=== PATIENT | male | born 1950 | race Hispanic/Latino ===

== ENCOUNTER → 2017-05-17 | Outpatient (CLI) | payer MEDICARE, OTHER ==
[~2017-05-17] MED LIST: ALLOPURINOL300 MG PO; AMLODIPINE BESY10 MG PO; AZITHROMYCIN250 MG PO; BENZONATATE100 MG PO; DITROPAN XL5 MG PO; FLAGYL250 MG PO; HYDROCHLOROTHIA25 MG PO; LEVAQUIN500 MG PO; LISINOPRIL PO; LOSARTAN POTAS100 MG PO; LOSARTAN-HCTZ1 EAC1 PO; OXYBUTYNIN CHLOR5 MG PO; POTASSIUM CHLO10 ME1 PO; TYLENOL # 31 EA PO; [UNRECOGNIZED DRUG - OTHER] PO
--- NOTE | 2017-05-17 13:09 | Diagnostic Imaging Report ---
PROCEDURE:CHEST 2 VIEWS TECHNIQUE:PA and lateral chest INDICATION:Cough and congestion COMPARISON:None. FINDINGS: The lungs are clear and symmetrically inflated. Normal bronchial wall thickness. No pleural effusions. Normal heart size, mediastinal contour, and pulmonary vasculature. Normal skeleton. CONCLUSION: Normal chest. Specifically, no evidence of pneumonia. Dictated by: Rhett Lopez M.D. on 05/17/2017 at 13:18 Electronically approved by: Rhett Lopez M.D. on 05/17/2017 at 13:18
== END ==
LOC: RAD 12:11
DX: R05 Cough (principal); R09.89 Other specified symptoms and signs involving the circulatory and respiratory systems
CPT/HCPCS: 71046

== ENCOUNTER → 2017-05-25 | Outpatient (CLI) | payer MEDICARE, OTHER ==
--- NOTE | 2017-05-25 20:31 | Diagnostic Imaging Report ---
PROCEDURE:X-RAY ABDOMEN - KUB COMPARISON:[facility], CT, CT ABDOMEN/PELVIS W, 11/09/2016, 21:52. INDICATIONS:KIDNEY STONE CHECK UP FINDINGS: There is a non-obstructed bowel-gas pattern. Right kidney: Multiple (at least 4) radiopaque densities project over the right renal shadow, ranging in size from 2-6 mm. The largest density is located in the inferior pole. Left kidney: 4 mm radiopaque density projects over the left renal shadow in the mid aspect. A 3 mm radiopaque density projects in the left inferior pole. No radiopaque densities project over the expected course of ureters or bladder. No acute bony abnormalities. CONCLUSION: Bilateral radiopaque densities project over the renal shadows, consistent with nonobstructing calculi Jamaal Neumann M.D. Dictated by: Jamaal Neumann M.D. on 05/25/2017 at 20:31 Electronically approved by: Jamaal Neumann M.D. on 05/25/2017 at 20:31
== END ==
LOC: RAD 15:14
PROVIDERS: ATTEND Urology
DX: N20.0 Calculus of kidney (principal)
CPT/HCPCS: 74018

== ENCOUNTER → 2017-08-13 | Day surgery (SDC) | payer MEDICARE, OTHER ==
[2017-08-11 10:00] LABS: BASOPHILS # (AUTO) 0.1 (0.0-0.1); BASOPHILS % 0.8 % (0.0-1.0); EOSINOPHILS # (AUTO) 0.3 (0.0-0.4); EOSINOPHILS % 3.2 % (0.0-6.0); HEMATOCRIT 48.6 % (38.2-49.6); HEMOGLOBIN 16.8 g/dL (14.0-18.0); LYMPHOCYTES # (AUTO) 1.9 (1.0-3.2); LYMPHOCYTES % 24.8 % (18.0-39.1); MEAN CORPUSCULAR HEMOGLOBIN 30.5 pg (28-32); MEAN CORPUSCULAR HGB CONC 34.6 g/dL (31-35); MEAN CORPUSCULAR VOLUME 88.2 fL (81-99); MONOCYTES # (AUTO) 0.7 (0.2-0.8); MONOCYTES % 8.6 % (4.4-11.3); NEUTROPHILS # (AUTO) 4.8 (2.1-6.9); NEUTROPHILS % 62.3 % (38.7-80.0); PLATELET COUNT 224 x10e3/uL (140-360); RED BLOOD COUNT 5.51 x10e6/uL (4.3-5.7); RED CELL DISTRIBUTION WIDTH 14.1 % (11.7-14.4)
[~2017-08-13] MED LIST changes: +BELLADONNA/OPIUM 60 MG SUPP PR ONE; +CEFTRIAXONE SOD 1 GM VIAL ONE; +DESFLURANE 240 ML BTL INH ONE; +DEXAMETHASONE SOD PHOS INJ 4 MG/ML VIAL ONE; +FENTANYL CITRATE/PF 100MCG/2 ML INJ ONE; +IOPAMIDOL 610MG/1ML 300 MG/ML VIAL IV ONE; +LIDOCAINE HCL 2% LOCAL INJ 5 ML SDV VIAL INJ ONE; +MIDAZOLAM HCL 2 MG/2 ML VIAL ONE; +ONDANSETRON HCL INJ 2 MG/ML VIAL ONE; +PROPOFOL IV EMULSION 10 MG/ML 20 ML VIAL ONE
--- OUTSIDE RECORDS SUMMARY | 2017-08-13 06:06 | XMS REPORT ---
Author Author [facility] Address Unknown Phone Unavailable Care Team Providers Care Plumbing Assembler Installer Name Role Phone SRIRAM CHAN Unavailable Unavailable JOHNBRUCE Unavailable Unavailable Problems This patient has no known problems. Allergies, Adverse Reactions, Alerts This patient has no known allergies or adverse reactions. Medications This patient has no known medications. Results Test Description Test Time Test Comments Text Results Atomic Results Result Comments ABDOMEN-1VIEW (KUB) [place] [address] Patient Name: GRETCHEN PORTER MR #: [id number] : 1950 Age/Sex: 66/M Req #: [id number] Adm Physician: Ordered by: SRIRAM CHAN MD Report #: [id number] Location: [facility] Room/Bed: Procedure: [id number] DX/ABDOMEN-1VIEW (KUB) Exam Date: 05/25/17 Exam Time: 1540 REPORT STATUS: Signed PROCEDURE: X-RAY ABDOMEN - KUB COMPARISON: [facility], CT, CT ABDOMEN/ PELVIS W, 11/09/2016, 21:52. INDICATIONS: KIDNEY STONE CHECK UP FINDINGS: There is a non-obstructed bowel-gas pattern. Right kidney: Multiple (at least 4) radiopaque densities project over the right renal shadow, ranging in size from 2-6 mm. The largest density is located in the inferior pole. Left kidney: 4 mm radiopaque density projects over the left renal shadow in the mid aspect. A 3 mm radiopaque density projects in the left inferior pole. No radiopaque densities project over the expected course of ureters or bladder. No acute bony abnormalities. CONCLUSION: Bilateral radiopaque densities project over the renal shadows, consistent with nonobstructing calculi Debo Neumann M.D. Dictated by: Debo Neumann M.D. on 05/25/2017 at 20:31 Electronically approved by: Debo Neumann M.D. on 05/25/2017 at 20:31 Dictated By: DEBO NEUMANN MD 30 Transcribed By: DONTAE on 05/25/172030 COPY TO: SRIRAM CHAN MD CHEST 2 VIEWS [place] [address] Patient Name: GRETCHEN PORTER MR #: [id number] : 1950 Age/Sex: 66/M Req #: [id number] Adm Physician: Ordered by: BRUCE JOHN MD Report #: [id number] Location: [facility] Room/Bed: Procedure: [id number] DX/CHEST 2 VIEWS Exam Date: 05/17/17 Exam Time: 1230 REPORT STATUS: Signed PROCEDURE: CHEST 2 VIEWS TECHNIQUE: PA and lateral chest INDICATION: Cough and congestion COMPARISON: None. FINDINGS: The lungs are clear and symmetrically inflated. Normal bronchial wall thickness. No pleural effusions. Normal heart size, mediastinal contour, and pulmonary vasculature. Normal skeleton. CONCLUSION: Normal chest. Specifically, no evidence of pneumonia. Dictated by: Lucero Lopez M.D. on 05/17/2017 at 13:18 Electronically approved by: Lucero Lopez M.D. on 05/17/2017 at 13: 18 Dictated By: LUCERO LOPEZ MD [id number] Transcribed By: DONTAE on 05/17/17 1318 COPY TO: BRUCE JOHN MD
--- NOTE | 2017-08-13 07:45 | Diagnostic Imaging Report ---
PROCEDURE:X-RAY ABDOMEN - KUB COMPARISON:CT abdomen and pelvis 11/09/2016. INDICATIONS:PREOP - CALCULI OF KIDNEY FINDINGS: There is a non-obstructed bowel-gas pattern. Moderate amount of retained feces is present in the colon and rectum. Round density projects in the right upper quadrant, consistent with the hepatic cyst present on the previous examination. Right renal cyst. Multiple calculi project over the kidneys bilaterally. The largest in the right kidney measures 5.1 mm and projects over the inferior pole. The largest in the left kidney measures 6.7 mm and projects over the inferior pole. There are no calcifications projected over the expected course of the ureters or bladder. There are no acute osseous abnormalities. The lung bases are clear. CONCLUSION: Bilateral nephrolithiasis. Hepatic and renal cysts. Dictated by: Sunday Singleton M.D. on 08/13/2017 at 7:46 Electronically approved by: Sunday Singleton M.D. on 08/13/2017 at 7:46
--- NOTE | 2017-09-29 01:43 | Operative Report ---
DATE OF PROCEDURE: August 13, 2017 PREOPERATIVE DIAGNOSES: 1. Bilateral nephrolithiasis. 2. Chronic renal insufficiency. POSTOPERATIVE DIAGNOSES: 1. Bilateral nephrolithiasis. 2. Chronic renal insufficiency. OPERATIONS PERFORMED: 1. Staged left-sided extracorporeal shock wave lithotripsy (separate procedure performed for the 7-mm stone located in the left kidney). 2. Cystourethroscopy with bilateral ureteral catheterization and retrograde ureteropyelography (separate procedure performed to evaluate the obstruction in light of the renal insufficiency. 3. Interpretation of retrograde ureteropyelography. ANESTHESIA: General. COMPLICATIONS: None. CLINICAL SUMMARY: Parish Cabrera is a 66-year-old man with recurrent urolithiasis. He is brought for the above procedures. He is aware of the risks of bleeding, infection, injury to adjacent structures, need for additional procedures, and elected to proceed. OPERATIVE PROCEDURE IN DETAIL: Informed consent was verified. Parish Cabrera was properly identified, taken to the operating room, and placed on the lithotripsy table in supine position. Anesthesia was uneventfully begun. The patient's left nephrolithiasis was localized with biplanar fluoroscopy. Total of 3000 shocks were delivered with fragmentation noted. The patient was carefully and gently repositioned in dorsal lithotomy position with all pressure points well padded. His genitalia were prepared and draped in usual sterile fashion. A 22.5-Albanian cystoscope sheath with the visual obturator in place was atraumatically inserted into patient's urethra. It was guided down the unremarkable urethra, through the normal sphincteric region, through the prostate bed, which was significant for bilobar prostatic hypertrophy with an elevated median bar and visual obstruction. Panendoscopy of the urinary bladder revealed grade 1 trabeculations, but no tumors, no stones, and no diverticula. Normally positioned and configured ureteral orifices were identified. An 8-Albanian catheter was utilized to cannulate each ureter, and retrograde ureteral pyelograms were performed. Interpretation of retrograde ureteropyelography: Contrast was instilled in retrograde fashion bilaterally. There were no tumors, no new stones, and no diverticula. Filling defects were noted on the left side where we performed lithotripsy. This was an expected finding. The right nephrolithiasis was also noted. The patient's bladder was then drained and the cystoscope was withdrawn. A belladonna and opium suppository was placed, revealing a 40 g prostate that is smooth, non-fluctuant, and without any nodules. The patient was then uneventfully reversed from anesthesia and taken to recovery room in stable condition. There were no complications to the procedure. He tolerated the procedure well. Explicit post instructions were given, and we will return the patient to the operating room for right ESWL. Job#: [id number]
== END | disposition home or self-care (01) ==
LOC: OR 06:04
PROVIDERS: ATTEND Urology
DX: N20.0 Calculus of kidney (principal); N32.89 Other specified disorders of bladder; I12.9 Hypertensive chronic kidney disease with stage 1 through stage 4 chronic kidney disease, or unspecified chronic kidney disease; N18.9 Chronic kidney disease, unspecified; G47.33 Obstructive sleep apnea (adult) (pediatric); Z01.810 Encounter for preprocedural cardiovascular examination; Z01.812 Encounter for preprocedural laboratory examination; Z88.5 Allergy status to narcotic agent
CPT/HCPCS: 36415; 50590; 74018; 85025; 93005; C1758; J0696; J1100; J2001; J2250; J2405; Q9967

== ENCOUNTER → 2017-09-21 | Outpatient (CLI) | payer MEDICARE, OTHER ==
[~2017-09-21] MED LIST changes: -BELLADONNA/OPIUM 60 MG SUPP PR ONE; -CEFTRIAXONE SOD 1 GM VIAL ONE; -DESFLURANE 240 ML BTL INH ONE; -DEXAMETHASONE SOD PHOS INJ 4 MG/ML VIAL ONE; -FENTANYL CITRATE/PF 100MCG/2 ML INJ ONE; -IOPAMIDOL 610MG/1ML 300 MG/ML VIAL IV ONE; -LIDOCAINE HCL 2% LOCAL INJ 5 ML SDV VIAL INJ ONE; -MIDAZOLAM HCL 2 MG/2 ML VIAL ONE; -ONDANSETRON HCL INJ 2 MG/ML VIAL ONE; -PROPOFOL IV EMULSION 10 MG/ML 20 ML VIAL ONE
--- NOTE | 2017-09-21 18:25 | Diagnostic Imaging Report ---
PROCEDURE:X-RAY ABDOMEN - KUB COMPARISON:Patients [facility], DX, ABDOMEN-1VIEW (KUB), 08/13/2017, 7:05. INDICATIONS:KIDNEY STONES FINDINGS: Nonobstructive bowel gas pattern. Multiple radiopaque densities are again noted projecting over bilateral renal shadows, with the largest on the right measuring approximately 5 mm projecting in the inferior pole, and the largest on the left measuring approximately 4 mm, projecting in the mid to inferior aspect. No radiopaque densities project over the expected course of the ureters or bladder. No acute bony abnormalities. CONCLUSION: Bilateral nonobstructing calculi. No radiopaque densities project over the expected course of the ureters or bladder. Jamaal Neumann M.D. Dictated by: Jamaal Neumann M.D. on 09/21/2017 at 18:28 Electronically approved by: Jamaal Neumann M.D. on 09/21/2017 at 18:28
== END ==
LOC: RAD 14:28
PROVIDERS: ATTEND Urology
DX: N20.0 Calculus of kidney (principal)
CPT/HCPCS: 74018

== ENCOUNTER 2017-09-24 09:56 | Emergency (ER) | payer MEDICARE, OTHER ==
[~2017-09-24] VITALS: Ht 177.8 cm; Wt 98.0 kg
[2017-09-24] MEDS ORDERED: ONDANSETRON HCL INJ 2 MG/ML VIAL IV STA (10:28)
[2017-09-24] MEDS ORDERED: SODIUM CHLORIDE 0.9% 1000ML 1,000 ML IV STA (10:28)
[2017-09-24] MEDS ORDERED: KETOROLAC TROMETHAMINE 30 MG/ML VIAL IV STA (10:28)
[2017-09-24 10:38] LABS: BASOPHILS # (AUTO) 0.1 (0.0-0.1); BASOPHILS % 0.5 % (0.0-1.0); EOSINOPHILS # (AUTO) 0.2 (0.0-0.4); EOSINOPHILS % 1.6 % (0.0-6.0); HEMATOCRIT 48.2 % (38.2-49.6); HEMOGLOBIN 16.7 g/dL (14.0-18.0); LYMPHOCYTES # (AUTO) 1.6 (1.0-3.2); LYMPHOCYTES % 16.3 % (18.0-39.1); MEAN CORPUSCULAR HEMOGLOBIN 30.3 pg (28-32); MEAN CORPUSCULAR HGB CONC 34.6 g/dL (31-35); MEAN CORPUSCULAR VOLUME 87.3 fL (81-99); MONOCYTES # (AUTO) 0.8 (0.2-0.8); MONOCYTES % 8.2 % (4.4-11.3); NEUTROPHILS # (AUTO) 7.3 (2.1-6.9); PLATELET COUNT 177 x10e3/uL (140-360); RED BLOOD COUNT 5.52 x10e6/uL (4.3-5.7); RED CELL DISTRIBUTION WIDTH 13.9 % (11.7-14.4)
[2017-09-24 10:47] LABS: INR 1.06
[2017-09-24 10:48] LABS: PARTIAL THROMBOPLASTIN TIME 30.9 seconds (23.8-35.5)
[2017-09-24 10:55] LABS: ALBUMIN/GLOBULIN RATIO 1.3 (0.8-2.0); ANION GAP 12.2 mmol/L (8-16); CALCIUM 9.1 mg/dL (8.4-10.2); CREATININE, SERUM 1.38 mg/dL (0.72-1.25); POTASSIUM 3.2 mmol/L (3.5-5.1)
[2017-09-24 11:02] LABS: BILIRUBIN,URINE NEGATIVE (NEGATIVE); CLARITY,URINE CLEAR (CLEAR); COLOR,URINE YELLOW (YELLOW); CREATINE KINASE MB 0.7 ng/mL (0-5.0); KETONES,URINE NEGATIVE (NEGATIVE); LEUKOCYTE ESTERASE ,URINE NEGATIVE (NEGATIVE); NITRITE,URINE NEGATIVE (NEGATIVE); PROTEIN,URINE DIPSTICK NEGATIVE (NEGATIVE); URINE UROBILINOGEN 0.2 mg/dL (0.2 - 1)
[2017-09-24 11:19] LABS: EPITHELIAL CELLS,URINE RARE /LPF; MUCUS,URINE RARE (RARE)
--- NOTE | 2017-09-24 13:42 | Diagnostic Imaging Report ---
PROCEDURE:ABDOMINAL ULTRASOUND COMPARISON:[facility], CT, CT ABDOMEN/PELVIS W, 11/09/2016, 21:52. INDICATIONS: RIGHT ABDOMEN PAIN TECHNIQUE: Transverse and longitudinal images of the upper abdomen were obtained. FINDINGS: Liver: Size: 17.0 cm in the right midclavicular line, mildly enlarged. Appearance: Normal echogenicity, smooth contour Mass: Large anechoic lesion in the right lobe measures 14.6 x 13.5 x 13.2 cm. Anechoic lesion in the left lobe measures 1.7 x 1.4 x 1.7 cm. Spleen: Size: 10.7 cm in length, normal Echogenicity: Normal Mass: No focal masses Gallbladder: Stones/Sludge: None Appearance: No wall thickening, pericholecystic fluid or hydrops. Sonographic Melchor's Sign: Negative Bile Ducts: Intrahepatic Ducts: No dilatation Extrahepatic Ducts: Common bile duct measures 0.3 cm, no dilatation Pancreas: Visualized portions of the neck and proximal body are normal. Right Kidney: Size: 9.2 cm Echogenicity: Normal Collecting System: No hydronephrosis Stone: 2 small echogenic foci, the largest measuring 0.4 cm. Cyst/Mass: Anechoic lesion in the upper pole measures 4.4 x 2.0 x 2.0 cm. Anechoic lesion in the interpolar region measures 2.2 x 2.4 x 2.47 cm. Anechoic lesion in the lower pole measures 5.3 x 5.1 x 5.2 cm. Left Kidney: Size: 9.1 cm Echogenicity: Normal Collecting System: No hydronephrosis Stone: None Cyst/Mass: Anechoic lesion in the upper pole measures 5.1 x 5.1 x 5.0 cm. Vessels: Aorta: Visualized portions are normal Inferior Vena Cava: Visualized portions and normal Main Portal Vein: 1.3 cm, normal size with hepatopetal flow. Free Fluid: No ascites or pleural effusions IMPRESSION: 1. Very large, 14.6 cm simple cystic lesion in the right hepatic lobe. 2. Nonobstructing right renal calculi. 3. Bilateral simple renal cysts. Jack Faith M.D. Dictated by: Jack Faith M.D. on 09/24/2017 at 13:46 Electronically approved by: Jack Faith M.D. on 09/24/2017 at 13:46
[2017-09-24] MEDS ORDERED: DIATRIZOATE MEGL/DIATRIZOA SOD 30 ML BTL PO ONE (14:28)
--- NOTE | 2017-09-24 16:06 | Diagnostic Imaging Report ---
EXAM: CT Abdomen and Pelvis WITHOUT contrast INDICATION: Right-sided abdominal pain. Kidney stones. COMPARISON: 11/09/2016. TECHNIQUE: Abdomen and pelvis were scanned utilizing a multidetector helical scanner from the lung base to the pubic symphysis without administration of IV contrast. Absence of intravenous contrast decreases sensitivity for detection of focal lesions and vascular pathology. Coronal and sagittal reformations were obtained. Routine protocol was performed. IV CONTRAST: None. ORAL CONTRAST: Gastrografin and water mixture. RADIATION DOSE: Total DLP: 898.73 mGy*cm Estimated effective dose: (DLP x 0.015 x size factor) mSv COMPLICATIONS: None FINDINGS: LINES and TUBES: None. LOWER THORAX: Bibasilar dependent atelectasis. Calcification of the LAD and PDA. HEPATOBILIARY: Comparison is-sized hepatic cysts again observed, the largest in the right lobe measuring 15.6 cm in AP dimension, previously 13.6 cm, both measurements on image 34 series 2. No biliary ductal dilation. GALLBLADDER: No radio-opaque stones or sludge. No wall thickening. SPLEEN: No splenomegaly. PANCREAS: No focal masses or ductal dilatation. ADRENALS: No adrenal nodules KIDNEYS/URETERS: No hydronephrosis. Bilateral simple appearing renal cysts again observed, the largest exophytic of the anterior lower pole of the right kidney measuring 6.5 cm, previously 6.4 cm. Bilateral punctate renal calculi are again observed. No calculi are present within the ureter bilaterally. GI TRACT: No abnormal distention, wall thickening, or evidence of bowel obstruction. Appendix is nonvisualized, however, no evidence of appendicitis in the right lower quadrant. Scattered sigmoid diverticula without CT evidence of acute diverticulitis. PELVIC ORGANS/BLADDER: Unremarkable. LYMPH NODES: No lymphadenopathy. VESSELS: Atherosclerotic ulcerations without aneurysmal dilatation. PERITONEUM / RETROPERITONEUM: No free air or fluid. BONES: Unremarkable. SOFT TISSUES: Bilateral fat-containing inguinal hernias. Small fat-containing umbilical hernia. IMPRESSION: 1. Bilateral nonobstructing renal calculi. No hydronephrosis. 2. Mild interval increase in size of a large right hepatic lobe cyst currently measuring 15.6 cm in maximal AP dimension. Sigmoid diverticulosis without acute diverticulitis. Bilateral simple renal cysts. Signed by: Dr. Jack Faith M.D. on 09/24/2017 4:03 PM
[2017-09-24 17:10] VITALS: BP 117/83
== END 2017-09-24 17:29 | disposition home or self-care (01) ==
LOC: ER 09:56
DX: N20.0 Calculus of kidney (principal); K57.30 Diverticulosis of large intestine without perforation or abscess without bleeding; R11.0 Nausea; Z82.49 Family history of ischemic heart disease and other diseases of the circulatory system
CPT/HCPCS: 36415; 74176; 76700; 80053; 81001; 82150; 82550; 82553; 83690; 83970; 84484; 85025; 85610; 85730; 93005; 99284; J7030; J1885; J2405

== ENCOUNTER → 2018-02-01 | Outpatient (CLI) | payer MEDICARE, OTHER ==
--- NOTE | 2018-02-01 16:04 | Diagnostic Imaging Report ---
EXAMINATION: ABDOMEN-1VIEW (KUB) INDICATION:Renal calculus COMPARISON: CT Abdomen/Pelvis 09/24/2017. FINDINGS: Bilateral renal calculi are noted, measuring up to 3 mm in the right lower pole and 4 mm in the left mid pole. No evidence of stone overlying the ureters. There is a nonobstructive bowel gas pattern. There is no free intraperitoneal air. No acute bony findings. IMPRESSION: Bilateral renal stones measuring up to 3 mm in the right lower pole and 4 mm in the left mid pole. Signed by: Dr. Maggie Zayas MD on 02/01/2018 4:00 PM
== END ==
LOC: RAD 15:11
PROVIDERS: ATTEND Urology
DX: N20.0 Calculus of kidney (principal)
CPT/HCPCS: 74018

== ENCOUNTER 2018-06-01 05:43 | Inpatient (IN) | payer MEDICARE, OTHER ==
[2018-05-25 13:20] LABS: BASOPHILS # (AUTO) 0.1 (0.0-0.1); BASOPHILS % 0.8 % (0.0-1.0); EOSINOPHILS # (AUTO) 0.2 (0.0-0.4); EOSINOPHILS % 2.8 % (0.0-6.0); HEMATOCRIT 50.1 % (38.2-49.6); HEMOGLOBIN 16.7 g/dL (14.0-18.0); LYMPHOCYTES # (AUTO) 1.9 (1.0-3.2); LYMPHOCYTES % 24.7 % (18.0-39.1); MEAN CORPUSCULAR HGB CONC 33.3 g/dL (31-35); MEAN CORPUSCULAR VOLUME 89.9 fL (81-99); MONOCYTES # (AUTO) 0.7 (0.2-0.8); MONOCYTES % 9.3 % (4.4-11.3); NEUTROPHILS # (AUTO) 4.7 (2.1-6.9); NEUTROPHILS % 62.1 % (38.7-80.0); PLATELET COUNT 208 x10e3/uL (140-360); RED BLOOD COUNT 5.57 x10e6/uL (4.3-5.7); RED CELL DISTRIBUTION WIDTH 14.4 % (11.7-14.4)
[2018-05-25 13:42] LABS: ANION GAP 15.9 mmol/L (8-16); CALCIUM 9.2 mg/dL (8.4-10.2); CREATININE, SERUM 1.39 mg/dL (0.72-1.25); POTASSIUM 3.9 mmol/L (3.5-5.1)
[~2018-06-01] VITALS: Ht 177.8 cm; Wt 99.8 kg
[~2018-06-01 05:43] MED LIST changes: +METOPROLOL SUCC25 MG PO
[2018-06-01] MEDS ORDERED: MINERAL OIL STERILE 10ML VIAL ONE (10:39)
[2018-06-01] MEDS ORDERED: BUPIVACAINE 0.5%/EPI 30 ML SDV INJ ONE ×2 (11:53→12:11)
[2018-06-01] MEDS ORDERED: ACETAMINOPHEN 1000 MG/100 ML IV PRN (12:45)
[2018-06-01] MEDS ORDERED: FENTANYL CITRATE/PF 100MCG/2 ML INJ ONE ×2 (13:12→18:12)
[2018-06-01 14:04] VITALS: BP 100/66
[2018-06-01 16:00] VITALS: BP 100/66
[2018-06-01] MEDS: KETOROLAC TROMETHAMINE 30 MG/ML VIAL IV PRN ×2 (16:16→23:58)
[2018-06-01] MEDS: DEXTROSE 5%/LACTATED RINGERS 1,000 ML IV SCH ×2 (16:16→22:33)
[2018-06-01] MEDS: PANTOPRAZOLE 40 MG 10ML VIAL IV SCH (16:28)
[2018-06-01 17:32] VITALS: BP 100/66
[2018-06-01] MEDS: CEFOXITIN 1GM/ NS 50ML 50 ML IV SCH ×2 (17:59→23:58)
[2018-06-01] MEDS: MORPHINE SULFATE INJ 4 MG/ML INJ 1ML IV PRN (18:00)
[2018-06-01] MEDS ORDERED: LIDOCAINE HCL 2% LOCAL INJ 5 ML SDV VIAL INJ ONE (18:11)
[2018-06-01] MEDS ORDERED: ACETAMINOPHEN 1000 MG/100 ML IV ONE (18:11)
[2018-06-01] MEDS ORDERED: PHENYLEPHRINE HCL 1% 10 MG/ML VIAL ONE (18:11)
[2018-06-01] MEDS ORDERED: GLYCOPYRROLATE INJ 1MG/ 5 ML SYR ONE (18:11)
[2018-06-01] MEDS ORDERED: ONDANSETRON HCL INJ 2MG/ML 2ML 2 MG/ML VIAL ONE (18:11)
[2018-06-01] MEDS ORDERED: NEOSTIGMINE 5 MG/5ML SYR ONE (18:11)
[2018-06-01] MEDS ORDERED: SEVOFLURANE INHAL SOLN 250 ML PEN BTL ONE (18:11)
[2018-06-01] MEDS ORDERED: ROCURONIUM BROMIDE 10 MG/ML 5ML VIAL ONE (18:11)
[2018-06-01] MEDS ORDERED: CEFOXITIN SOD 1 GM VIAL ONE (18:11)
[2018-06-01] MEDS ORDERED: PROPOFOL IV EMULSION 10 MG/ML 20 ML VIAL ONE (18:11)
[2018-06-01] MEDS ORDERED: EPHEDRINE SULFATE INJ 50 MG/10 ML SYR ONE (18:11)
[2018-06-01] MEDS ORDERED: DEXAMETHASONE SOD PHOS INJ 4 MG/ML VIAL ONE (18:11)
[2018-06-01] MEDS ORDERED: MORPHINE SULFATE INJ 10 MG/ML ONE (18:12)
[2018-06-01] MEDS ORDERED: MIDAZOLAM HCL 2 MG/2 ML VIAL ONE (18:12)
--- NOTE | 2018-06-01 19:39 | Operative Report ---
DATE OF PROCEDURE: 06/01/2018 PREOPERATIVE DIAGNOSES: Recurrent sigmoid diverticulitis and large cystic mass of the right lobe of the liver. POSTOPERATIVE DIAGNOSES: Recurrent sigmoid diverticulitis and large cystic mass of the right lobe of the liver. OPERATION PERFORMED: Laparoscopic assisted low anterior resection and resection of cystic mass of the right lobe of the liver and mobilization of splenic flexure. ANESTHESIA: General. COMPLICATIONS: None. ESTIMATED BLOOD LOSS: 100 mL. DESCRIPTION OF PROCEDURE: With the patient lying in bed in the supine position under good general endotracheal anesthesia, the abdomen was prepped with Betaine solution and draped in the usual manner. A Veress needle was introduced into the umbilicus and pneumoperitoneum was established without any difficulty. An 11 mm trocar was placed into the umbilicus and a 10 mm video laparoscope was placed into the intraabdominal cavity. Under direct vision, a 5 mm trocar was placed in the left lower quadrant and another one in the right upper quadrant and another one in the left upper quadrant. Video laparoscopy at this point revealed adhesions to the lateral gutter on the left side from the patient's known recurrent bouts of diverticulitis. There were also some adhesions from the patient's previous pelvic surgery. The only other positive findings was the fact there was a massive cyst to the right lobe of the liver, which extended all the way down to about the level of the umbilicus, so we decided that it would need to be resected. The left colon was then mobilized over the lateral gutter using the Harmonic scalpel and the sigmoid colon was mobilized all the way up to the splenic flexure and the splenic flexure was mobilized and brought down. Once this was done, we went ahead and then mobilized the sigmoid colon all the way down to the rectosigmoid junction over the lateral gutter and all the adhesions were taken down. Once this was completed, a small incision was made in the left lower quadrant and a muscle-splitting incision was carried down into the peritoneum. The peritoneum was opened. The hand device was then placed in the intraabdominal cavity and the colon was then delivered up into the wound since it had already been mobilized. The colon was then divided at the level of the descending colon with FARHAT-75 stapler. The mesentery of the colon was then slowly and carefully taken down using the Harmonic scalpel all the way down to the rectosigmoid junction, at which point the colon was divided using the contour stapler and the specimen was sent for pathological examination. The colon proximally was then mobilized so that it would reach down into the pelvis without any difficulty. The staple line was then removed from the proximal colon and a 33-EEA was placed intraluminally and fixed in position with a pursestring suture of 2-0 Prolene. At this point, we went from below and the anus and rectum were dilated all the way up to 33 dilator and a 33-EEA stapler was then placed transanally and brought out through the anterior aspect of the staple line at the rectosigmoid junction. The staple and anvil were then joined and the stapler was closed and fired. Two perfect doughnuts were obtained. There was no tension on the anastomosis. Gloves and instruments were then changed. The anastomosis was then reinforced with interrupted sutures of 3-0 silk. Once this was done, pneumoperitoneum was then reestablished and the cyst of the right lobe of the liver was then punctured and lot of clear fluid was obtained. The wall of the cyst was then resected, which encompassed all the way from the gallbladder bed all the way laterally to the tip of the right lobe of the liver and the cyst wall was removed without any difficulty and sent for pathological examination. Hemostasis was then ascertained. The abdomen was then irrigated. All the excess fluid was aspirated. The pneumoperitoneum was evacuated and all the trocars were removed under direct vision. The left lower quadrant incision was then closed in layers. The peritoneum was approached with running sutures of #0 Vicryl. The muscle was reapproximated with #0 Vicryl. The external oblique aponeurosis was then closed with a running suture of #0 Vicryl. All layers were infiltrated on the way out with solution of 0.25% Marcaine. Subcutaneous tissue was approximated with 2-0 chromic and the skin was closed with clips. The puncture wounds were closed with subcuticular 5-0 Vicryl. Benzoin, Steri-Strips, and dressings were applied. The sponge, lap, and needle counts were correct. The patient tolerated both procedures well and returned to the recovery room in stable condition. MD SIVAKUMAR Sosa/ROBERT /[id number]
[2018-06-01 20:00] VITALS: BP 127/57
[2018-06-01] MEDS: ONDANSETRON HCL INJ 2MG/ML 2ML 2 MG/ML VIAL IV PRN ×2 (20:20→23:58)
[2018-06-01] MEDS: SODIUM CHLORIDE 0.9% 250ML IRRIG IR SCH (20:45)
[2018-06-02] VITALS (9 sets, daily range): BP systolic 90–127; BP diastolic 51–66
[2018-06-02] MEDS: SODIUM CHLORIDE 0.9% 250ML IRRIG IR SCH ×6 (00:45→20:25)
[2018-06-02] MEDS: KETOROLAC TROMETHAMINE 30 MG/ML VIAL IV PRN ×2 (01:39→18:54)
[2018-06-02 05:36] LABS: BASOPHILS % 0.1 % (0.0-1.0); HEMATOCRIT 41.6 % (38.2-49.6); HEMOGLOBIN 14.4 g/dL (14.0-18.0); LYMPHOCYTES # (AUTO) 1.1 (1.0-3.2); LYMPHOCYTES % 5.7 % (18.0-39.1); MEAN CORPUSCULAR HEMOGLOBIN 30.8 pg (28-32); MEAN CORPUSCULAR HGB CONC 34.6 g/dL (31-35); MEAN CORPUSCULAR VOLUME 88.9 fL (81-99); MONOCYTES # (AUTO) 1.2 (0.2-0.8); MONOCYTES % 6.7 % (4.4-11.3); NEUTROPHILS # (AUTO) 16.1 (2.1-6.9); PLATELET COUNT 171 x10e3/uL (140-360); RED BLOOD COUNT 4.68 x10e6/uL (4.3-5.7); RED CELL DISTRIBUTION WIDTH 14.2 % (11.7-14.4)
[2018-06-02 06:00] LABS: CALCIUM 8.5 mg/dL (8.4-10.2); POTASSIUM 3.8 mmol/L (3.5-5.1)
[2018-06-02] MEDS: MORPHINE SULFATE INJ 4 MG/ML INJ 1ML IV PRN ×4 (06:13→21:56)
[2018-06-02] MEDS: ONDANSETRON HCL INJ 2MG/ML 2ML 2 MG/ML VIAL IV PRN ×4 (06:13→21:56)
[2018-06-02 07:02] LABS: ANION GAP 8.8 mmol/L (8-16); CREATININE, SERUM 1.53 mg/dL (0.72-1.25)
[2018-06-02] MEDS: DEXTROSE 5%/LACTATED RINGERS 1,000 ML IV SCH ×2 (11:08→18:46)
--- NOTE | 2018-06-02 13:30 | NUR ---
CASE MANAGEMENT ASSESSMENT Office Asst to bedside to discuss plan of care with patient/family. CM/SW role and care transitions discussed. Anticipated discharge plan discussed along with duration of care. CM/SW discussed patients right to make decisions in care. CM/SW work hours given. Patient lives: currently staying with his daughter; pt lives with his in [place] Admit/Transfer: thru ED Hospital/ER visits since last admit: pt states last admission was in October 2017 POA/Emergency contact: Jennifer Cabrera [phone] Current/Previous Home Health: none PCP/Follow-up Care: Dr. Moses - PCP; advised pt to follow up with his doctors within 7 days of discharge. Pt stated he will be following up with Dr. Crook after discharge Current/Previous DME: CPAP Medications (referring to index hospitalization or the first time you were in the hospital) a. Were changes made in your medications when you were in the hospital on October 2017? no changes b. Did you understand the changes? n/a c. Were you able to obtain your new medications right away? n/a d. Were you able to take your medications like the doctor wanted you to? n/a e. Did the hospital give you an accurate, easy to understand list of medications when you left? yes Scale of 1-10 how comfortable does patient feel with disease management in outpatient settin Other Services: none Employment Status: retired Areas of Concerns: recurrent diverticulitis Referral Needs: none at this time Education Needs: medical management IMM/SUTTON given and signed (if applicable): not at this time Goal for discharge: home CM/SW left business card at the bedside with contact information. Name and number was also written on the patients whiteboard. Patient verbalized understanding of discussion. CM will follow-up with ongoing discharge and transition of care needs.
[2018-06-02] MEDS: PANTOPRAZOLE 40 MG 10ML VIAL IV SCH (13:51)
--- NOTE | 2018-06-02 15:04 | NUR ---
PATIENT WALKED WITH ASSISTANCE 80 FEET (ROUND TRIP) TO THE NURSES STATION AND BACK TO HIS ROOM.
[2018-06-02] MEDS: BISACODYL 10 MG SUPP PR SCH (20:25)
--- NOTE | 2018-06-02 21:50 | NUR ---
Vital signs rechecked IN=313/57 MMHG, IA=68BREATHS/MIN, RR=18BPM.
[2018-06-03] VITALS (8 sets, daily range): BP systolic 104–129; BP diastolic 59–76
[2018-06-03] MEDS: SODIUM CHLORIDE 0.9% 250ML IRRIG IR SCH ×5 (00:45→16:45)
--- NOTE | 2018-06-03 03:05 | Consultation ---
DATE OF CONSULTATION: 06/02/2018 Cardiology Consultation REASON FOR CONSULTATION: Hypertension. HISTORY OF PRESENT ILLNESS: Mr. Cabrera is a very pleasant 67-year-old man with a past history of hypertension, which has become somewhat more refractory to medical management, particularly with the course over the last several years. He was previously taking lisinopril with adequate blood pressure control, however, as the blood pressure started to become dysregulated, most importantly on diastolic numbers, he was switched to different medications, initially losartan, which was uptitrated to 100 with hydrochlorothiazide and also they started metoprolol 25 mg initially once a day, now twice daily. He continues to have elevated diastolic blood pressure . He is requesting further evaluation and management. He is in the hospital for episodes of recurrent diverticulitis, for which he underwent laparoscopic partial colectomy by Dr. Crook. He is recovering well with NG tube in place and mild discomfort postoperatively as expected. He denies any chest pain or shortness of breath, lightheadedness, syncope, or palpitations. He has no other complaints at this time. PAST MEDICAL HISTORY: Significant for hypertension. PAST SURGICAL HISTORY: Includes prior appendectomy and nephrolithiasis as well as prior episode of diverticulitis. ALLERGIES: REPORTEDLY PER EMR, HYDROMORPHONE. SOCIAL HISTORY: No smoking, alcohol, or drugs. FAMILY HISTORY: Noncontributory. PHYSICAL EXAMINATION: VITAL SIGNS: Temperature 97.7, heart rate 74, blood pressure , and O2 saturation 96% on nasal cannula. GENERAL: In no acute distress. Alert. NECK: No JVD. NG tube in place. CHEST: Clear to auscultation. CARDIOVASCULAR: Regular rate and rhythm. Normal S1 and S2. Systolic ejection murmur 1/6 in the left upper sternal border. No S3. No S4. ABDOMEN: Soft with dressings in place. EXTREMITIES: No edema, warm distal extremities. MEDICATIONS: Cardiovascular medications reviewed. Currently on normal saline, Protonix, ketorolac p.r.n., bisacodyl, and morphine p.r.n. LABORATORY STUDIES: White blood cells 18.4, hemoglobin 14.4, and platelets are 171. Sodium 132, potassium 3.8, chloride 101, bicarbonate 26, BUN , creatinine 1.5, up from previous 1.3 on 05/25. Glucose 133. Telemetry, in sinus rhythm. EKG, sinus bradycardia. ASSESSMENT: 1. Hypertension. 2. Postoperative state from laparoscopic partial colectomy. 3. Sinus bradycardia. RECOMMENDATIONS: Given postoperative state, conservative management to his blood pressure is advisable, particularly given slight volume depletion with earlier blood pressure read of 90/51, most recent within normal range with a MAP of 75, off antihypertensives. Parish continues to recover and tolerate p.o. We will gradually adjust medications. I have discussed with Parish plan of switching antihypertensives, off diuretics, and with particular use of calcium channel hawa/alpha-hawa/ARB or KOURTNEY inhibitor combination as . I have advised the patient to obtain blood pressure cuff appropriate for his size and I have discussed recommendations for adequate blood pressure measurement while at home. We will follow as outpatient with further evaluation and management. I thank, Dr. Crook, for the opportunity to participate in the care of Mr. Cabrera, who will be available. Please feel free to call with any questions or concerns. MD COLBY Mcrae/ROBERT /[id number]
[2018-06-03] MEDS: ONDANSETRON HCL INJ 2MG/ML 2ML 2 MG/ML VIAL IV PRN ×3 (03:12→22:55)
[2018-06-03] MEDS: MORPHINE SULFATE INJ 4 MG/ML INJ 1ML IV PRN ×2 (03:12→08:10)
[2018-06-03] MEDS: DEXTROSE 5%/LACTATED RINGERS 1,000 ML IV SCH ×2 (04:33→14:41)
[2018-06-03 05:25] LABS: BASOPHILS % 0.4 % (0.0-1.0); EOSINOPHILS # (AUTO) 0.1 (0.0-0.4); EOSINOPHILS % 0.9 % (0.0-6.0); HEMATOCRIT 39.3 % (38.2-49.6); HEMOGLOBIN 13.2 g/dL (14.0-18.0); LYMPHOCYTES # (AUTO) 1.7 (1.0-3.2); LYMPHOCYTES % 15.6 % (18.0-39.1); MEAN CORPUSCULAR HEMOGLOBIN 30.1 pg (28-32); MEAN CORPUSCULAR HGB CONC 33.6 g/dL (31-35); MEAN CORPUSCULAR VOLUME 89.7 fL (81-99); MONOCYTES # (AUTO) 0.9 (0.2-0.8); MONOCYTES % 8.6 % (4.4-11.3); NEUTROPHILS % 74.2 % (38.7-80.0); PLATELET COUNT 148 x10e3/uL (140-360); RED BLOOD COUNT 4.38 x10e6/uL (4.3-5.7); RED CELL DISTRIBUTION WIDTH 14.4 % (11.7-14.4)
[2018-06-03 05:54] LABS: ANION GAP 10.5 mmol/L (8-16); CALCIUM 8.1 mg/dL (8.4-10.2); CREATININE, SERUM 1.55 mg/dL (0.72-1.25); POTASSIUM 3.5 mmol/L (3.5-5.1)
[2018-06-03] MEDS: BISACODYL 10 MG SUPP PR SCH ×2 (07:50→21:35)
--- NOTE | 2018-06-03 08:23 | NUR ---
Patient alert and responsive, VSS, medicated for pain to abdomen, James cath removed at this time and patient DTV at 14:15, NG tube to LCWS, draining, will monitor.
--- NOTE | 2018-06-03 11:18 | NUR ---
IMM EXPLAINED TO PT, SIGNED AND ON CHART COPY TO PT IN CARE TRANSITION FOLDER
--- NOTE | 2018-06-03 11:48 | NUR ---
NG tube removed at this time and patient tolerated well, OOB to ambulate
--- NOTE | 2018-06-03 13:45 | NUR ---
Patient OOB and ambulated and voided post removal of James 500cc
[2018-06-03] MEDS: PANTOPRAZOLE 40 MG 10ML VIAL IV SCH (14:30)
[2018-06-03] MEDS: KETOROLAC TROMETHAMINE 30 MG/ML VIAL IV PRN ×2 (14:42→22:55)
--- NOTE | 2018-06-03 16:13 | NUR ---
Nutrition Screen Note RD Recommendation for Physician: -Rec advancing to GI soft diet as medically appropriate Plan of Care: RD following, monitoring for tolerance and adequacy Nutrition reason for involvement: Nutrition Risk Trigger MST Primary Diagnose(s): Postoperative state from laparoscopic partial colectomy. PMH: HTN Ht: 70in Wt: 220lb BMI: 31.6kg/m2 IBW: 166lb RD Assessment: (06/03) Chart reviewed. Labs and meds reviewed. 67yo M, who was admitted for abdominal pain. POD 2. Per RN, NGT will be removed today. 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 Pt denied chewing/swallowing problems and nausea/vomiting. Pt reported feeling hungry and eager to advance his diet. Flatus present. Anticipate pt able to meet nutritional need through po intake when diet is advanced. Will cont to monitor. Please consult as needed. Current Diet: NPO Malnutrition Evaluation (06/03) The patient does not meet criteria for a specified degree of malnutrition at this time. Will re-evaluate at follow-up as appropriate. Diet Education Needs Assessment: Diet education not indicated. Nutrition Care Level: low Signed: Denise Whittaker, MS, RD, LD
--- NOTE | 2018-06-03 19:04 | NUR ---
RECEIVED PATIENT AAOX3. NO NEEDS VOICED. AT BEDSIDE. LLQ DRSG C/D/I, AND TROCAR SITES C/D/I. BED LOCKED AND IN LOWEST POSITION, CALL LIGHT WITHIN EASY REACH.
[2018-06-04] VITALS (8 sets, daily range): BP systolic 113–119; BP diastolic 64–79
[2018-06-04] MEDS: DEXTROSE 5%/LACTATED RINGERS 1,000 ML IV SCH ×2 (03:03→13:50)
[2018-06-04] MEDS: KETOROLAC TROMETHAMINE 30 MG/ML VIAL IV PRN (04:35)
[2018-06-04] MEDS: ONDANSETRON HCL INJ 2MG/ML 2ML 2 MG/ML VIAL IV PRN ×2 (04:36→20:19)
--- NOTE | 2018-06-04 04:45 | NUR ---
PATIENT HAD A LARGE BM WITH BRIGHT BLOOD. DENIES STRAINING. DENIES PAIN. WILL CONTINUE TO MONITOR PATIENT CLOSELY.
--- NOTE | 2018-06-04 06:02 | Progress Note ---
DATE: 06/03/2018 Cardiology Progress Note SUBJECTIVE: No chest pain or shortness of breath. Mild abdominal discomfort overall improving. OBJECTIVE: VITAL SIGNS: Temperature 96.4, heart rate 82, blood pressure 104/66, respiratory rate 20, and O2 saturation 98%. GENERAL: No acute distress. Alert. HEENT: NG tube in place to wall suction. NECK: No JVD. CHEST: Clear to auscultation. CARDIOVASCULAR: Regular rate and rhythm. Normal S1 and S2. No S3 or S4. ABDOMEN: Soft. Decreased bowel sounds. Dressings in place. EXTREMITIES: No edema. MEDICATIONS: Cardiovascular medications reviewed: Morphine p.r.n., Protonix, ketorolac, Ringer's lactate. LABORATORY DATA: Studies reviewed. Potassium 3.5, bicarbonate 30, and creatinine 1.5. Hemoglobin 13.2, white blood cells 10.8, and platelets are 148. ASSESSMENT: 1. Hypertension, ho 2. Status post laparoscopic partial colectomy. 3. Diverticulitis, recurrent. RECOMMENDATIONS: Remains with [id number] blood pressure readings off antihypertensives in the postoperative state in the setting of opiates and volume depletion from NPO status. Continue to monitor blood pressure readings as the patient resumes p.o. intake and as needed adjust antihypertensives. MD COLBY Mcrae/USHAL /[id number] MTDD
[2018-06-04] MEDS: BISACODYL 10 MG SUPP PR SCH (08:00)
--- NOTE | 2018-06-04 08:41 | NUR ---
Patient alert and responsive, VSS and no resp distress, VSS and OOB and ambulating hallways, had small BM this morning and passing gas, refused suppository stating he is having a lot of motility in his stomach. will continue to monitor.
[2018-06-04 09:25] LABS: BASOPHILS % 0.4 % (0.0-1.0); EOSINOPHILS # (AUTO) 0.4 (0.0-0.4); EOSINOPHILS % 3.7 % (0.0-6.0); HEMATOCRIT 44.5 % (38.2-49.6); HEMOGLOBIN 14.8 g/dL (14.0-18.0); LYMPHOCYTES # (AUTO) 1.8 (1.0-3.2); LYMPHOCYTES % 17.4 % (18.0-39.1); MEAN CORPUSCULAR HEMOGLOBIN 30.3 pg (28-32); MEAN CORPUSCULAR HGB CONC 33.3 g/dL (31-35); MEAN CORPUSCULAR VOLUME 91.2 fL (81-99); MONOCYTES # (AUTO) 0.8 (0.2-0.8); MONOCYTES % 8.1 % (4.4-11.3); NEUTROPHILS # (AUTO) 7.3 (2.1-6.9); PLATELET COUNT 192 x10e3/uL (140-360); RED BLOOD COUNT 4.88 x10e6/uL (4.3-5.7); RED CELL DISTRIBUTION WIDTH 13.9 % (11.7-14.4)
[2018-06-04 09:43] LABS: ANION GAP 10.5 mmol/L (8-16); CALCIUM 8.9 mg/dL (8.4-10.2); CREATININE, SERUM 1.43 mg/dL (0.72-1.25); POTASSIUM 3.5 mmol/L (3.5-5.1)
[2018-06-04] MEDS: PANTOPRAZOLE 40 MG 10ML VIAL IV SCH (13:50)
--- NOTE | 2018-06-04 15:32 | NUR ---
Call from surgeon and orders in place to start on clear liquids, will monitor
--- NOTE | 2018-06-04 17:41 | Progress Note ---
DATE: 06/04/2018 Cardiology Progress Note SUBJECTIVE: No new complaints today. NG tube has been discontinued. The patient has had problems with some dark-colored bloody stools per his report. Denies any chest pain or shortness of breath. OBJECTIVE: VITAL SIGNS: Temperature 97.4, heart rate 56, blood pressure 116/69, respiratory rate 16, O2 saturation 96%. BMI is 31.5. GENERAL: In no acute distress. Alert. NECK: No JVD. CHEST: Clear to auscultation. CARDIOVASCULAR: Regular rate and rhythm. Normal S1 and S2. No S3 or S4. ABDOMEN: Soft and nontender. EXTREMITIES: No edema. Warm distal extremities. MEDICATIONS: Cardiovascular medications reviewed: 1. Zofran. 2. Morphine sulfate p.r.n. 3. Protonix p.r.n. 4. Lactated Ringer's. LABORATORY DATA: Studies reviewed. Creatinine 1.4, potassium 3.5, and bicarbonate 32. Hemoglobin 14.8, white blood cells 10.3, and platelets 192. ASSESSMENT: 1. Diverticulitis, status post partial colectomy via laparoscopic approach. 2. Hypertension. RECOMMENDATIONS: 1. Continue to advance diet at the discretion of Surgery's expertise and directioning. 2. Continue to monitor blood pressure. 3. Wean analgesics as tolerated. 4. We will institute antihypertensives as blood pressure requires and adjust accordingly. MD COLBY Mcrae/USHAL /[id number]
[2018-06-04] MEDS: HYDROCODONE/APAP 7.5MG-325MG 1 EA TAB PO PRN (20:59)
[2018-06-05] MEDS: HYDROCODONE/APAP 7.5MG-325MG 1 EA TAB PO PRN (01:08)
[2018-06-05] MEDS: ONDANSETRON HCL INJ 2MG/ML 2ML 2 MG/ML VIAL IV PRN ×2 (01:08→13:30)
[2018-06-05 01:31] VITALS: BP 118/80
[2018-06-05 04:00] VITALS: BP 101/56
[2018-06-05] MEDS: DEXTROSE 5%/LACTATED RINGERS 1,000 ML IV SCH ×3 (06:33→17:44)
--- NOTE | 2018-06-05 06:55 | NUR ---
Walking rounds done and report received. Patient is up in chair, denies any pain or discomfort at this time. Spouse is at the bedside. Patient instructed to call for assistance as needed and verbalized understanding. Call badillo within reach.
[2018-06-05 09:20] VITALS: BP 109/67
[2018-06-05 12:00] VITALS: BP 132/73
[2018-06-05] MEDS: PANTOPRAZOLE 40 MG 10ML VIAL IV SCH (14:22)
[2018-06-05 16:35] VITALS: BP 112/68
--- NOTE | 2018-06-05 20:04 | NUR ---
RECEIVED PATIENT AAOX3.DENIES PAIN LLQ DRSG, AND TROCAR SITES C/D/I. FAMILY AT THE BEDSIDE CALL LIGHT WITHIN EASY REACH.CONTINUE TO MONITOR
[2018-06-05 20:36] VITALS: BP 139/84
[2018-06-05] MEDS: BISACODYL 10 MG SUPP PR SCH (21:00)
[2018-06-06] VITALS (8 sets, daily range): BP systolic 106–139; BP diastolic 57–84
--- NOTE | 2018-06-06 07:17 | Progress Note ---
DATE: 06/05/2018 Cardiology Progress Note SUBJECTIVE: Tolerating clear liquids today. No other complaints. Denies chest pain or shortness of breath. OBJECTIVE: VITAL SIGNS: Temperature 97 degrees, heart rate 60, blood pressure 112/68, respiratory rate 18, O2 saturation 95%. GENERAL: No acute distress. Alert. NECK: No JVD. CHEST: Clear to auscultation. CARDIOVASCULAR: Regular rate and rhythm. Normal S1, S2. ABDOMEN: Soft, nontender. EXTREMITIES: No edema. CARDIOVASCULAR MEDICATIONS: Reviewed. STUDIES: Reviewed. Creatinine 1.4. Hemoglobin 14.8, platelets 198. ASSESSMENT: 1. Hypertension. 2. Diverticulitis, status post partial colectomy. RECOMMENDATIONS: 1. Continue to advance diet as per Surgery. 2. Hydration. MD BlantonV/MODL /[id number]
--- NOTE | 2018-06-06 07:54 | NUR ---
PT RESTED DURING THE NIGHT .DENIES PAIN .BEDSIDE REPORT GIVEN
[2018-06-06] MEDS: BISACODYL 10 MG SUPP PR SCH (10:24)
--- NOTE | 2018-06-06 10:24 | NUR ---
assessment complete no distress noted, updated on poc voiced understanding, denies pain at this time, iv to r hand 20g infiltrated, iv dc'd, attempted restart by charge nurse x 2 sticks unsuccessfully, will notify , no other co voiced call light in reach will continue to monitor
--- NOTE | 2018-06-06 17:45 | Progress Note ---
DATE: 06/06/2018 Cardiology Progress Note SUBJECTIVE: No complaints today. Tolerating oatmeal breakfast. OBJECTIVE: VITAL SIGNS: Temperature 97.3, heart rate 64, respiratory rate 14, blood pressure 106/57 up to 139/84, O2 saturation 97% on room air. GENERAL: No acute distress, alert. NECK: No JVD. CHEST: Clear to auscultation. CARDIOVASCULAR: Regular rate and rhythm. Normal S1 and S2. ABDOMEN: Soft, nontender with dressings in place. EXTREMITIES: No edema. MEDICATIONS: Cardiovascular medications reviewed. Ringer's lactate, Protonix, Zofran, and p.r.n. analgesics. STUDIES: Reviewed. For today, no labs. TELEMETRY: Sinus rhythm on 06/04/2018, now discontinued. ASSESSMENT: 1. Hypertension. 2. Diverticulitis, recurrent, status post partial colectomy laparoscopically. 3. Chronic kidney disease. RECOMMENDATIONS: 1. Continue to monitor blood pressure, advance diet, on IV fluids. 2. Blood pressure adequately controlled currently. MD COLBY Mcrae/ROBERT /[id number]
--- NOTE | 2018-06-06 20:00 | NUR ---
PT UP WALKING IN HALLS FREQUENTLY, VS STABLE, NO DISTRESS NOTED, NO PAIN NOTED, FAMILY WITH PT, 5X TROCAR SITES OPEN TO AIR WITH STERI STRIPS, INCISION TO LEFT LOWER QUAD WITH JONAH, NO IV ACCESS, TOLD TO CALL FOR NEEDS
[2018-06-07] VITALS: BP 119/62
--- NOTE | 2018-06-07 | NUR ---
PT IN BED, EASILY AROUSED, FAMILY AT BEDSIDE, NO DISTRESS NOTED, VS STABLE, CALL LIGHT IN REACH
[2018-06-07 04:00] VITALS: BP 112/66
--- NOTE | 2018-06-07 06:36 | NUR ---
PT IN BED, NO DISTRESS NOTED, VS STABLE, CALL LIGHT IN REACH, FAMILY AT BEDSIDE,
[2018-06-07] MEDS ORDERED: PANTOPRAZOLE SOD 40 MG TABEC PO SCH (07:30)
[2018-06-07 08:07] VITALS: BP 127/83
[2018-06-07 12:00] VITALS: BP 125/85
[2018-06-07 17:00] VITALS: BP 144/82
--- NOTE | 2018-06-07 17:00 | NUR ---
Patient alert and responsive, OOB and ambulated numerous times, no c/o major pains, tolerated regular diet and VSS, surgeon will be in to discharge patient today as was checked with him
[2018-06-07 18:01] VITALS: BP 144/82
--- NOTE | 2018-06-07 21:10 | NUR ---
DISCHARGE ASSESSMENT DONE.V/S STABLE.SENDING ALL THE BELONGINGS WITH PT.SENDING PT IN A WHEEL CHAIR IN A STABLE CONDITION.
== END 2018-06-07 20:00 | disposition home or self-care (01) | DRG 331 ==
LOC: OR 05:43 → PACU V 12:36 → MED/SURG 14:11
PROVIDERS: ADMIT Surgery; ATTEND Surgery
PROC: 0FB10ZX Excision of Right Lobe Liver, Open Approach, Diagnostic (ICD-10-PCS; 2018-06-01)
PROC: 0DTN0ZZ Resection of Sigmoid Colon, Open Approach (ICD-10-PCS; principal; 2018-06-01 07:30)
DX: K57.32 Diverticulitis of large intestine without perforation or abscess without bleeding (principal); K76.89 Other specified diseases of liver; E86.9 Volume depletion, unspecified; R00.1 Bradycardia, unspecified; Z79.899 Other long term (current) drug therapy; Z88.5 Allergy status to narcotic agent; G47.33 Obstructive sleep apnea (adult) (pediatric); Z87.442 Personal history of urinary calculi; I12.9 Hypertensive chronic kidney disease with stage 1 through stage 4 chronic kidney disease, or unspecified chronic kidney disease; N18.9 Chronic kidney disease, unspecified
CPT/HCPCS: 36415; 80048; 82948; 85025; 86850; 86900; 88305; 88307; 93005; C1766; J0694; J1100; J1885; J2001; J2250; J2270; J2370; J2405

== ENCOUNTER → 2018-07-06 | Outpatient (CLI) | payer MEDICARE, OTHER ==
--- NOTE | 2018-07-06 15:21 | Diagnostic Imaging Report ---
Exam: Abdominal film Clinical History: Renal stones Comparison: KUB 02/01/2018 DISCUSSION: Overall similar appearance of bilateral renal calculi relative to 02/01/2018. 3 mm calcifications project over the left upper and lower poles. 4-5 mm calcification projects over the interpolar region of the right kidney. 2 mm calcification projects over the upper pole of the right kidney. No suspicious calcifications projecting over the ureteral courses. Bowel gas pattern is nonobstructive. Regional skeletal structures are intact. IMPRESSION: Grossly stable appearance of bilateral renal calculi relative to 02/01/2018. Additional smaller bilateral calculi seen on CT abdomen and pelvis 09/24/2017 are not identified by plain radiography. Signed by: Dr. Orlando Rose M.D. on 07/06/2018 3:18 PM
== END ==
LOC: RAD 14:22
PROVIDERS: ATTEND Urology
DX: N20.0 Calculus of kidney (principal)
CPT/HCPCS: 74018

== ENCOUNTER → 2020-09-16 | Outpatient (CLI) | payer MEDICARE, OTHER | LOC: CT 14:44 | PROVIDERS: ATTEND Urology | DX: N20.0 Calculus of kidney (principal) | CPT/HCPCS: 74176 ==

== ENCOUNTER → 2020-11-06 | Outpatient (CLI) | payer MEDICARE, OTHER | LOC: US 13:53 | DX: R19.04 Left lower quadrant abdominal swelling, mass and lump (principal); K40.90 Unilateral inguinal hernia, without obstruction or gangrene, not specified as recurrent | CPT/HCPCS: 76882 ==

== ENCOUNTER → 2020-11-20 | Day surgery (SDC) | payer MEDICARE, OTHER ==
[2020-11-18 10:27] LABS: BASOPHILS # (AUTO) 0.1 (0.0-0.1); BASOPHILS % 0.6 % (0.0-1.0); EOSINOPHILS # (AUTO) 0.3 (0.0-0.4); EOSINOPHILS % 3.3 % (0.0-6.0); HEMATOCRIT 49.3 % (38.2-49.6); HEMOGLOBIN 16.4 g/dL (14.0-18.0); LYMPHOCYTES # (AUTO) 1.9 (1.0-3.2); LYMPHOCYTES % 23.3 % (18.0-39.1); MEAN CORPUSCULAR HEMOGLOBIN 29.4 pg (28-32); MEAN CORPUSCULAR HGB CONC 33.3 g/dL (31-35); MEAN CORPUSCULAR VOLUME 88.5 fL (81-99); MONOCYTES # (AUTO) 0.6 (0.2-0.8); NEUTROPHILS # (AUTO) 5.2 (2.1-6.9); NEUTROPHILS % 65.5 % (38.7-80.0); PLATELET COUNT 214 x10e3/uL (140-360); RED BLOOD COUNT 5.57 x10e6/uL (4.3-5.7); RED CELL DISTRIBUTION WIDTH 15.1 % (11.7-14.4)
[2020-11-18 10:42] LABS: ANION GAP 11.3 mmol/L (8-16); CALCIUM 8.7 mg/dL (8.4-10.2); CREATININE, SERUM 1.36 mg/dL (0.72-1.25); POTASSIUM 4.3 mmol/L (3.5-5.1)
[~2020-11-20] MED LIST changes: +AMLODIPINE BESYL5 MG PO; +BUPIVACAINE 0.25% 30ML SDV ONE; +CARVEDILOL12.5 MG PO; +DEXAMETHASONE SOD PHOS INJ 4 MG/ML VIAL ONE; +FENTANYL CITRATE/PF 100MCG/2 ML INJ ONE; +HYDROCODONE/APAP 7.5MG-325MG 1 EA TAB ONE; +LIDOCAINE 1% W/EPINEPHRINE 20 ML VIAL ONE; +LIDOCAINE HCL 2% LOCAL INJ 5 ML SDV VIAL INJ ONE; +ONDANSETRON HCL INJ 2MG/ML 2ML 2 MG/ML VIAL ONE; +POVIDONE IODINE 0.05% 0.05 % ML PO ONE; +PROPOFOL IV EMULSION 10 MG/ML 20 ML VIAL ONE; +SEVOFLURANE INHAL SOLN 250 ML PEN BTL ONE
[2020-11-20 13:15] VITALS: BP 128/83
== END | disposition home or self-care (01) ==
LOC: OR 06:52
PROVIDERS: ATTEND Surgery
DX: K40.90 Unilateral inguinal hernia, without obstruction or gangrene, not specified as recurrent (principal); D17.6 Benign lipomatous neoplasm of spermatic cord; G47.33 Obstructive sleep apnea (adult) (pediatric); I10 Essential (primary) hypertension; N20.0 Calculus of kidney; Z88.6 Allergy status to analgesic agent; Z01.810 Encounter for preprocedural cardiovascular examination; Z01.812 Encounter for preprocedural laboratory examination; Z01.818 Encounter for other preprocedural examination; Z20.822 Contact with and (suspected) exposure to COVID-19
CPT/HCPCS: 36415; 49505; 71046; 80048; 85025; 93005; C1781; J1100; J2001; J2405; J2704; J3010; U0002

== ENCOUNTER → 2021-01-15 | Outpatient (CLI) | payer MEDICARE, OTHER ==
[~2021-01-15] MED LIST changes: -BUPIVACAINE 0.25% 30ML SDV ONE; -DEXAMETHASONE SOD PHOS INJ 4 MG/ML VIAL ONE; -FENTANYL CITRATE/PF 100MCG/2 ML INJ ONE; -HYDROCODONE/APAP 7.5MG-325MG 1 EA TAB ONE; -LIDOCAINE 1% W/EPINEPHRINE 20 ML VIAL ONE; -LIDOCAINE HCL 2% LOCAL INJ 5 ML SDV VIAL INJ ONE; -ONDANSETRON HCL INJ 2MG/ML 2ML 2 MG/ML VIAL ONE; -POVIDONE IODINE 0.05% 0.05 % ML PO ONE; -PROPOFOL IV EMULSION 10 MG/ML 20 ML VIAL ONE; -SEVOFLURANE INHAL SOLN 250 ML PEN BTL ONE
== END ==
LOC: RAD 11:43
PROVIDERS: ATTEND Urology
DX: N20.0 Calculus of kidney (principal)
CPT/HCPCS: 74018

== ENCOUNTER → 2021-01-24 | Day surgery (SDC) | payer MEDICARE, OTHER ==
[2021-01-22 12:05] LABS: BASOPHILS # (AUTO) 0.1 (0.0-0.1); BASOPHILS % 0.9 % (0.0-1.0); EOSINOPHILS # (AUTO) 0.3 (0.0-0.4); EOSINOPHILS % 4.2 % (0.0-6.0); HEMOGLOBIN 15.2 g/dL (14.0-18.0); LYMPHOCYTES # (AUTO) 1.7 (1.0-3.2); LYMPHOCYTES % 25.1 % (18.0-39.1); MEAN CORPUSCULAR HEMOGLOBIN 29.1 pg (28-32); MEAN CORPUSCULAR HGB CONC 32.3 g/dL (31-35); MONOCYTES # (AUTO) 0.6 (0.2-0.8); MONOCYTES % 9.6 % (4.4-11.3); NEUTROPHILS % 59.9 % (38.7-80.0); PLATELET COUNT 219 x10e3/uL (140-360); RED BLOOD COUNT 5.22 x10e6/uL (4.3-5.7); RED CELL DISTRIBUTION WIDTH 14.8 % (11.7-14.4)
[2021-01-22 12:25] LABS: ALBUMIN 4.1 g/dL (3.5-5.0); ALBUMIN/GLOBULIN RATIO 1.2 (0.8-2.0); ANION GAP 13.3 mmol/L (8-16); CALCIUM 8.5 mg/dL (8.4-10.2); CREATININE, SERUM 1.37 mg/dL (0.72-1.25); POTASSIUM 4.3 mmol/L (3.5-5.1)
[~2021-01-24] MED LIST changes: +BELLADONNA/OPIUM 30 MG SUPP RC ONE; +CEFTRIAXONE 1 GM VIAL ONE; +FENTANYL CITRATE/PF 100MCG/2 ML INJ ONE; +IOPAMIDOL 300MG/ML 50ML INFUS..BTL IV ONE; +SODIUM CHLORIDE 0.9% 50ML 50 ML ONE
[2021-01-24 10:15] VITALS: BP 121/81
== END | disposition home or self-care (01) ==
LOC: OR 06:10
PROVIDERS: ATTEND Urology
DX: N20.0 Calculus of kidney (principal); N18.9 Chronic kidney disease, unspecified; N28.1 Cyst of kidney, acquired; N28.83 Nephroptosis; N40.1 Benign prostatic hyperplasia with lower urinary tract symptoms; N13.8 Other obstructive and reflux uropathy; K57.90 Diverticulosis of intestine, part unspecified, without perforation or abscess without bleeding; E66.9 Obesity, unspecified; R00.1 Bradycardia, unspecified; Z88.6 Allergy status to analgesic agent; Z01.812 Encounter for preprocedural laboratory examination; Z20.822 Contact with and (suspected) exposure to COVID-19
CPT/HCPCS: 36415; 50590; 80053; 83970; 84550; 85025; 88300; C1758; J0696; Q9967; U0002; J3010

== ENCOUNTER → 2021-10-17 | Day surgery (SDC) | payer MEDICARE, OTHER ==
[2021-10-16 08:24] LABS: BASOPHILS % 0.6 % (0.0-1.0); EOSINOPHILS # (AUTO) 0.3 (0.0-0.4); EOSINOPHILS % 4.1 % (0.0-6.0); HEMATOCRIT 46.6 % (38.2-49.6); HEMOGLOBIN 15.1 g/dL (14.0-18.0); LYMPHOCYTES # (AUTO) 1.6 (1.0-3.2); LYMPHOCYTES % 24.2 % (18.0-39.1); MEAN CORPUSCULAR HEMOGLOBIN 30.4 pg (28-32); MEAN CORPUSCULAR HGB CONC 32.4 g/dL (31-35); MEAN CORPUSCULAR VOLUME 93.8 fL (81-99); MONOCYTES # (AUTO) 0.5 (0.2-0.8); MONOCYTES % 7.5 % (4.4-11.3); NEUTROPHILS # (AUTO) 4.1 (2.1-6.9); NEUTROPHILS % 63.4 % (38.7-80.0); PLATELET COUNT 208 x10e3/uL (140-360); RED BLOOD COUNT 4.97 x10e6/uL (4.3-5.7); RED CELL DISTRIBUTION WIDTH 15.8 % (11.7-14.4)
[2021-10-16 08:40] LABS: ANION GAP 12.4 mmol/L (8-16); CALCIUM 8.1 mg/dL (8.4-10.2); CREATININE, SERUM 1.47 mg/dL (0.72-1.25); POTASSIUM 4.4 mmol/L (3.5-5.1)
[~2021-10-17] MED LIST changes: +ATROPINE SULFATE 1 MG/ML VIAL ONE; +DEXAMETHASONE SOD PHOS INJ 4 MG/ML SDV ONE; +EPHEDRINE SULFATE INJ 50 MG/ML VIAL ONE; +GENTAMICIN 80MG/NS 100 ML 200 ML IV ONE; +GLYCOPYRROLATE INJ 0.2 MG/ML VIAL ONE; +HYDROCHLOROTH12.5 MG PO; -IOPAMIDOL 300MG/ML 50ML INFUS..BTL IV ONE; +IOPAMIDOL 610MG/1ML 300 MG/ML VIAL IV ONE; +LIDOCAINE HCL 2% LOCAL INJ 5 ML SDV VIAL INJ ONE; +MEPERIDINE HCL INJ 25 MG/ML VIAL ONE; +ONDANSETRON HCL INJ 2MG/ML 2ML 2 MG/ML VIAL ONE; +POVIDONE IODINE 0.05% 0.05 % ML PO ONE; +PROPOFOL IV EMULSION 10 MG/ML 20 ML VIAL ONE; +SEVOFLURANE INHAL SOLN 250 ML PEN BTL ONE; -SODIUM CHLORIDE 0.9% 50ML 50 ML ONE
[2021-10-17 09:00] VITALS: BP 146/83
== END | disposition home or self-care (01) ==
LOC: OR 05:03
PROVIDERS: ATTEND Urology
DX: N40.1 Benign prostatic hyperplasia with lower urinary tract symptoms (principal); N13.8 Other obstructive and reflux uropathy; N20.0 Calculus of kidney; I12.9 Hypertensive chronic kidney disease with stage 1 through stage 4 chronic kidney disease, or unspecified chronic kidney disease; N18.9 Chronic kidney disease, unspecified; G47.33 Obstructive sleep apnea (adult) (pediatric); K57.90 Diverticulosis of intestine, part unspecified, without perforation or abscess without bleeding; M10.9 Gout, unspecified; Z88.6 Allergy status to analgesic agent; Z01.810 Encounter for preprocedural cardiovascular examination; Z01.812 Encounter for preprocedural laboratory examination; Z01.818 Encounter for other preprocedural examination; Z20.822 Contact with and (suspected) exposure to COVID-19; Z79.899 Other long term (current) drug therapy
CPT/HCPCS: 52005; C9740; 0223U; 36415; 74018; 74420; 80048; 84550; 85025; 93005; C1758; J0461; J0696; J1100; J1580; J2001; J2175; J2405; J3010; L8699

== ENCOUNTER → 2021-11-21 | Outpatient (CLI) | payer MEDICARE, OTHER ==
[~2021-11-21] MED LIST changes: -ATROPINE SULFATE 1 MG/ML VIAL ONE; -BELLADONNA/OPIUM 30 MG SUPP RC ONE; -CEFTRIAXONE 1 GM VIAL ONE; -DEXAMETHASONE SOD PHOS INJ 4 MG/ML SDV ONE; -EPHEDRINE SULFATE INJ 50 MG/ML VIAL ONE; -FENTANYL CITRATE/PF 100MCG/2 ML INJ ONE; -GENTAMICIN 80MG/NS 100 ML 200 ML IV ONE; -GLYCOPYRROLATE INJ 0.2 MG/ML VIAL ONE; -IOPAMIDOL 610MG/1ML 300 MG/ML VIAL IV ONE; -LIDOCAINE HCL 2% LOCAL INJ 5 ML SDV VIAL INJ ONE; -MEPERIDINE HCL INJ 25 MG/ML VIAL ONE; -ONDANSETRON HCL INJ 2MG/ML 2ML 2 MG/ML VIAL ONE; -POVIDONE IODINE 0.05% 0.05 % ML PO ONE; -PROPOFOL IV EMULSION 10 MG/ML 20 ML VIAL ONE; -SEVOFLURANE INHAL SOLN 250 ML PEN BTL ONE
== END ==
LOC: CT 07:27
PROVIDERS: ATTEND Urology
DX: N20.0 Calculus of kidney (principal); N28.1 Cyst of kidney, acquired
CPT/HCPCS: 74176

== ENCOUNTER → 2022-01-08 | Outpatient (CLI) | payer MEDICARE, OTHER | LOC: RAD 08:01 | PROVIDERS: ATTEND Nurse Practitioner | DX: R06.00 Dyspnea, unspecified (principal) | CPT/HCPCS: 71046 ==

== ENCOUNTER → 2022-01-09 | Day surgery (SDC) | payer MEDICARE, OTHER ==
[2022-01-08 08:15] LABS: BASOPHILS # (AUTO) 0.1 (0.0-0.1); BASOPHILS % 0.9 % (0.0-1.0); EOSINOPHILS # (AUTO) 0.3 (0.0-0.4); EOSINOPHILS % 3.6 % (0.0-6.0); HEMATOCRIT 47.1 % (38.2-49.6); HEMOGLOBIN 15.4 g/dL (14.0-18.0); LYMPHOCYTES # (AUTO) 1.8 (1.0-3.2); MEAN CORPUSCULAR HGB CONC 32.7 g/dL (31-35); MEAN CORPUSCULAR VOLUME 91.8 fL (81-99); MONOCYTES # (AUTO) 0.6 (0.2-0.8); MONOCYTES % 7.6 % (4.4-11.3); NEUTROPHILS # (AUTO) 4.8 (2.1-6.9); NEUTROPHILS % 63.6 % (38.7-80.0); PLATELET COUNT 202 x10e3/uL (140-360); RED BLOOD COUNT 5.13 x10e6/uL (4.3-5.7); RED CELL DISTRIBUTION WIDTH 14.3 % (11.7-14.4)
[2022-01-08 08:52] LABS: ANION GAP 12.7 mmol/L (8-16); CALCIUM 8.6 mg/dL (8.4-10.2); CREATININE, SERUM 1.26 mg/dL (0.72-1.25); POTASSIUM 3.7 mmol/L (3.5-5.1)
[~2022-01-09] MED LIST changes: +B&O 60MG R/S 60 MG SUPP PR ONE; +CEFTRIAXONE 1 GM VIAL ONE; +DEXAMETHASONE SOD PHOS INJ 4 MG/ML SDV ONE; +FENTANYL CITRATE/PF 100MCG/2 ML INJ ONE; +GLYCOPYRROLATE INJ 0.2 MG/ML VIAL ONE; +IOPAMIDOL 300MG/ML 50ML INFUS..BTL IV ONE; +LIDOCAINE HCL 2% LOCAL INJ 5 ML SDV VIAL INJ ONE; +MIDAZOLAM HCL 2 MG/2 ML VIAL ONE; +ONDANSETRON HCL INJ 2MG/ML 2ML 2 MG/ML VIAL ONE; +POVIDONE IODINE 0.05% 0.05 % ML PO ONE; +PROPOFOL IV EMULSION 10 MG/ML 20 ML VIAL ONE; +SEVOFLURANE INHAL SOLN 250 ML PEN BTL ONE
[2022-01-09 10:35] VITALS: BP 127/87
== END | disposition home or self-care (01) ==
LOC: OR 05:50
PROVIDERS: ATTEND Urology
DX: N20.0 Calculus of kidney (principal); I12.9 Hypertensive chronic kidney disease with stage 1 through stage 4 chronic kidney disease, or unspecified chronic kidney disease; N18.9 Chronic kidney disease, unspecified; Z96.0 Presence of urogenital implants; N32.89 Other specified disorders of bladder; G47.33 Obstructive sleep apnea (adult) (pediatric); R00.1 Bradycardia, unspecified; Z88.6 Allergy status to analgesic agent; Z01.810 Encounter for preprocedural cardiovascular examination; Z01.812 Encounter for preprocedural laboratory examination; Z01.818 Encounter for other preprocedural examination; Z79.899 Other long term (current) drug therapy
CPT/HCPCS: 36415; 50590; 74018; 80048; 84550; 85025; 93005; C1758; J0696; J1100; J2001; J2250; J2405; J2704; J3010; Q9967

== ENCOUNTER → 2022-03-13 | Day surgery (SDC) | payer MEDICARE, OTHER ==
[2022-03-11 14:40] LABS: BASOPHILS % 0.5 % (0.0-1.0); EOSINOPHILS # (AUTO) 0.2 (0.0-0.4); EOSINOPHILS % 2.4 % (0.0-6.0); HEMATOCRIT 47.2 % (38.2-49.6); MEAN CORPUSCULAR HEMOGLOBIN 29.6 pg (28-32); MEAN CORPUSCULAR HGB CONC 31.8 g/dL (31-35); MEAN CORPUSCULAR VOLUME 93.3 fL (81-99); MONOCYTES # (AUTO) 0.4 (0.2-0.8); MONOCYTES % 4.9 % (4.4-11.3); NEUTROPHILS % 66.1 % (38.7-80.0); PLATELET COUNT 222 x10e3/uL (140-360); RED BLOOD COUNT 5.06 x10e6/uL (4.3-5.7); RED CELL DISTRIBUTION WIDTH 14.5 % (11.7-14.4)
[2022-03-11 14:59] LABS: ALBUMIN/GLOBULIN RATIO 1.2 (0.8-2.0); ANION GAP 12.6 mmol/L (8-16); CALCIUM 8.7 mg/dL (8.4-10.2); CREATININE, SERUM 1.37 mg/dL (0.72-1.25); POTASSIUM 3.6 mmol/L (3.5-5.1)
[~2022-03-13] MED LIST changes: -B&O 60MG R/S 60 MG SUPP PR ONE; +EPHEDRINE SULFATE INJ 50 MG/ML VIAL ONE; -FENTANYL CITRATE/PF 100MCG/2 ML INJ ONE; -IOPAMIDOL 300MG/ML 50ML INFUS..BTL IV ONE; +KETOROLAC TROMETHAMINE 30 MG/ML VIAL ONE; +LOSARTAN POTASS25 MG PO; -MIDAZOLAM HCL 2 MG/2 ML VIAL ONE
[2022-03-13 12:30] VITALS: BP 132/84
== END | disposition home or self-care (01) ==
LOC: OR 07:34
PROVIDERS: ATTEND Urology
DX: N20.0 Calculus of kidney (principal); N28.1 Cyst of kidney, acquired; I10 Essential (primary) hypertension; Z88.6 Allergy status to analgesic agent; Z01.810 Encounter for preprocedural cardiovascular examination; Z01.812 Encounter for preprocedural laboratory examination; Z01.818 Encounter for other preprocedural examination; Z79.899 Other long term (current) drug therapy
CPT/HCPCS: 36415; 50590; 71046; 74018; 80053; 84550; 85025; 93005; J0696; J1100; J1885; J2001; J2405; J2704

== ENCOUNTER → 2022-04-01 | Outpatient (CLI) | payer MEDICARE, OTHER ==
[~2022-04-01] MED LIST changes: -CEFTRIAXONE 1 GM VIAL ONE; -DEXAMETHASONE SOD PHOS INJ 4 MG/ML SDV ONE; -EPHEDRINE SULFATE INJ 50 MG/ML VIAL ONE; -GLYCOPYRROLATE INJ 0.2 MG/ML VIAL ONE; -KETOROLAC TROMETHAMINE 30 MG/ML VIAL ONE; -LIDOCAINE HCL 2% LOCAL INJ 5 ML SDV VIAL INJ ONE; -ONDANSETRON HCL INJ 2MG/ML 2ML 2 MG/ML VIAL ONE; -POVIDONE IODINE 0.05% 0.05 % ML PO ONE; -PROPOFOL IV EMULSION 10 MG/ML 20 ML VIAL ONE; -SEVOFLURANE INHAL SOLN 250 ML PEN BTL ONE
== END ==
LOC: SLEEP
PROVIDERS: ATTEND Internal Medicine Critical Care Medicine
DX: G47.33 Obstructive sleep apnea (adult) (pediatric) (principal)
CPT/HCPCS: 95810

== ENCOUNTER → 2022-08-28 | Outpatient (CLI) | payer MEDICARE, OTHER | LOC: CT 12:55 | PROVIDERS: ATTEND Internal Medicine Critical Care Medicine | DX: R09.02 Hypoxemia (principal); R06.09 Other forms of dyspnea; J42 Unspecified chronic bronchitis; R05.3 Chronic cough; I10 Essential (primary) hypertension; G47.33 Obstructive sleep apnea (adult) (pediatric); E66.9 Obesity, unspecified; R94.2 Abnormal results of pulmonary function studies | CPT/HCPCS: 71250 ==

== ENCOUNTER → 2022-09-21 | Outpatient (CLI) | payer MEDICARE, OTHER ==
[2022-09-21 16:54] LABS: ALBUMIN 4.2 g/dL (3.5-5.0); ALBUMIN/GLOBULIN RATIO 1.1 (0.8-2.0); ANION GAP 14.5 mmol/L (8-16); CALCIUM 9.2 mg/dL (8.4-10.2); CREATININE, SERUM 1.45 mg/dL (0.72-1.25); POTASSIUM 3.5 mmol/L (3.5-5.1)
== END ==
LOC: LAB 16:07
PROVIDERS: ATTEND Internal Medicine Critical Care Medicine
DX: R09.02 Hypoxemia (principal); R06.09 Other forms of dyspnea; R05.3 Chronic cough; J68.4 Chronic respiratory conditions due to chemicals, gases, fumes and vapors; G47.33 Obstructive sleep apnea (adult) (pediatric); J42 Unspecified chronic bronchitis; R94.2 Abnormal results of pulmonary function studies; I10 Essential (primary) hypertension
CPT/HCPCS: 36415; 80053; 82785; 85651; 86021; 86039; 86140; 86200; 86431